=== PATIENT | female | born 1955 | race Caucasian/White ===

== ENCOUNTER 2016-05-19 13:09 | Emergency (ER) | payer BC ==
[~2016-05-19] VITALS: Ht 157.5 cm; Wt 75.0 kg
[2016-05-19] MEDS ORDERED: HYDROCHLOROTH12.5 M3 PO (13:40)
[2016-05-19] MEDS ORDERED: PERCOCET 5/31 TABLET PO (17:19)
[2016-05-19 17:24] VITALS: BP 122/76
== END 2016-05-19 17:42 | disposition home or self-care (01) ==
LOC: EME 13:09
PROC: 0S9C3ZZ Drainage of Right Knee Joint, Percutaneous Approach (ICD-10-PCS; principal; 2016-05-19)
DX: M25.461 Effusion, right knee (principal)
CPT/HCPCS: 73564; 87070; 87205; 89051; 89060; 93971

== ENCOUNTER → 2016-06-30 | Outpatient (CLI) | payer BC ==
[~2016-06-30] MED LIST: HYDROCHLOROTH12.5 M3 PO; PERCOCET 5/31 TABLET PO
== END | disposition home or self-care (01) ==
LOC: CDC 11:43
DX: Z01.810 Encounter for preprocedural cardiovascular examination (principal); M25.561 Pain in right knee; M17.11 Unilateral primary osteoarthritis, right knee; M21.161 Varus deformity, not elsewhere classified, right knee
CPT/HCPCS: 93000